=== PATIENT | female | born 1955 | race Caucasian/White ===

== ENCOUNTER → 2024-02-14 11:10 | Outpatient (REF) | payer MEDICARE, SELFPAY | LOC: HWRAD 11:10 | PROVIDERS: ATTENDING PHYSICIAN Internal Medicine | DX: M81.0 Age-related osteoporosis without current pathological fracture (principal) | CPT/HCPCS: 77080 ==

== ENCOUNTER → 2024-02-15 09:05 | Outpatient (REF) | payer MEDICARE, SELFPAY ==
[2024-02-15 09:33] LABS: % Basophils 0.5 % (0-2); % Eosinophils 1.7 % (0-6); % Immature Granulocytes 0.2 % (0-0.5); % Lymphocytes 25.9 % (20.5-51.1); % Monocytes 5.4 % (1.7-9.3); % Neutrophils 66.3 % (42.2-75.2); Absolute Eosinophils 0.1 10^3/uL (0-0.7); Absolute Lymphocytes 1.6 10^3/uL (1.2-3.4); Absolute Monocytes 0.3 10^3/uL (0.1-0.6); Hematocrit 41.1 % (37.0-47.0); Hemoglobin 13.3 g/dL (12.0-16.0); Mean Corp Hgb Conc. 32.4 g/dL (33.0-37.0); Mean Corpuscular Hgb 28.9 pg (27.0-31.0); Mean Corpuscular Volume 89.2 fL (81.0-99.0); Nucleated Red Blood Cells % 0 %; Platelet Count 268 10^3/uL (130-400); Red Blood Cell Count 4.61 10^6/uL (4.20-5.40); Red Cell Dist. Width 13.4 % (11.5-14.5); White Blood Cell Count 6.1 10^3/uL (4.8-10.8)
[2024-02-15 10:33] LABS: ALT (SGPT) 29 U/L (0-35); AST (SGOT) 25 U/L (14-36); Albumin 4.4 g/dl (3.5-5.0); Alkaline Phosphatase 80 U/L (38-126); Blood Urea Nitrogen 14 mg/dl (7-17); Carbon Dioxide 30 mmol/L (22-30); Chloride 102 mmol/L (98-107); Direct Bilirubin 0.4 mg/dl (0.0-0.4); Glucose 97 mg/dl (70-99); HDL Cholesterol 80 mg/dl; LDL Cholesterol, Calculated 78 mg/dl; Sodium 138 mmol/L (135-145); Total Bilirubin 0.5 mg/dl (0.2-1.3); Total Cholesterol 172 mg/dl (50-199); Total Protein 7.1 g/dl (6.3-8.2); Triglyceride 71 mg/dl (10-149); Very Low Density Lipoprotein 14 mg/dl (0-30); eGFR > 60.00
[2024-02-15 11:08] LABS: Potassium 4.5 mmol/L (3.5-5.1); TSH Reflex To Free T4 0.74 uIU/ml (0.47-4.68)
== END ==
LOC: REG 09:05
PROVIDERS: ATTENDING PHYSICIAN Internal Medicine
DX: E78.2 Mixed hyperlipidemia (principal); R00.2 Palpitations
CPT/HCPCS: 36415; 80053; 80061; 82248; 84443; 85025

== ENCOUNTER → 2024-04-14 06:29 | Day surgery (SDC) | payer MEDICARE, SELFPAY | LOC: GI 06:29 | PROVIDERS: ATTENDING PHYSICIAN Internal Medicine Gastroenterology; FAMILY PHYSICIAN Internal Medicine | DX: K31.7 Polyp of stomach and duodenum (principal); R12 Heartburn | CPT/HCPCS: 43239; 88305 ==

== ENCOUNTER → 2024-11-14 10:45 | Outpatient (REF) | payer MEDICARE, SELFPAY ==
[2024-11-14 11:25] LABS: % Basophils 0.3 % (0-2); % Eosinophils 1.4 % (0-6); % Immature Granulocytes 0.2 % (0-0.5); % Lymphocytes 26.3 % (20.5-51.1); % Monocytes 5.4 % (1.7-9.3); % Neutrophils 66.4 % (42.2-75.2); Absolute Eosinophils 0.1 10^3/uL (0-0.7); Absolute Lymphocytes 1.5 10^3/uL (1.2-3.4); Absolute Monocytes 0.3 10^3/uL (0.1-0.6); Absolute Neutrophils 3.8 10^3/uL (1.4-6.5); Hematocrit 42.4 % (37.0-47.0); Hemoglobin 14.1 g/dL (12.0-16.0); Mean Corp Hgb Conc. 33.3 g/dL (33.0-37.0); Mean Corpuscular Hgb 29.4 pg (27.0-31.0); Mean Corpuscular Volume 88.5 fL (81.0-99.0); Mean Platelet Volume 8.8 fL (7.4-10.4); Nucleated Red Blood Cells % 0 %; Platelet Count 247 10^3/uL (130-400); Red Blood Cell Count 4.79 10^6/uL (4.20-5.40); Red Cell Dist. Width 12.7 % (11.5-14.5); White Blood Cell Count 5.8 10^3/uL (4.8-10.8)
[2024-11-14 11:53] LABS: ALT (SGPT) 32 U/L (0-35); AST (SGOT) 25 U/L (14-36); Albumin 4.4 g/dl (3.5-5.0); Alkaline Phosphatase 90 U/L (38-126); Blood Urea Nitrogen 13 mg/dl (7-17); Calcium 9.7 mg/dl (8.4-10.2); Carbon Dioxide 31 mmol/L (22-30); Chloride 103 mmol/L (98-107); Glucose 96 mg/dl (70-99); HDL Cholesterol 80 mg/dl; LDL Cholesterol, Calculated 96 mg/dl; Potassium 4.7 mmol/L (3.5-5.1); Sodium 141 mmol/L (135-145); Total Bilirubin 0.4 mg/dl (0.2-1.3); Total Cholesterol 196 mg/dl (50-199); Total Protein 6.9 g/dl (6.3-8.2); Triglyceride 103 mg/dl (10-149); Very Low Density Lipoprotein 20 mg/dl (0-30); eGFR > 60.00
== END ==
LOC: REG 10:45
PROVIDERS: ATTENDING PHYSICIAN Internal Medicine; OTHER PHYSICIAN Internal Medicine Gastroenterology
DX: K21.9 Gastro-esophageal reflux disease without esophagitis (principal); E78.2 Mixed hyperlipidemia; R00.2 Palpitations
CPT/HCPCS: 36415; 80053; 80061; 82248; 85025

== ENCOUNTER → 2024-11-21 14:17 | Outpatient (REF) | payer MEDICARE, SELFPAY | LOC: WDC 14:17 | PROVIDERS: ATTENDING PHYSICIAN Internal Medicine | DX: Z12.31 Encounter for screening mammogram for malignant neoplasm of breast (principal) | CPT/HCPCS: 77063; 77067 ==

== ENCOUNTER → 2025-04-09 11:22 | Outpatient (REF) | payer MEDICARE, SELFPAY ==
[2025-04-09 11:58] LABS: % Basophils 0.7 % (0-2); % Eosinophils 1.4 % (0-6); % Immature Granulocytes 0.2 % (0-0.5); % Lymphocytes 30.5 % (20.5-51.1); % Monocytes 5.3 % (1.7-9.3); % Neutrophils 61.9 % (42.2-75.2); Absolute Eosinophils 0.1 10^3/uL (0-0.7); Absolute Lymphocytes 1.7 10^3/uL (1.2-3.4); Absolute Monocytes 0.3 10^3/uL (0.1-0.6); Absolute Neutrophils 3.5 10^3/uL (1.4-6.5); Hemoglobin 13.3 g/dL (12.0-16.0); Mean Corp Hgb Conc. 32.4 g/dL (33.0-37.0); Mean Corpuscular Hgb 28.9 pg (27.0-31.0); Mean Corpuscular Volume 89.1 fL (81.0-99.0); Mean Platelet Volume 9.1 fL (7.4-10.4); Nucleated Red Blood Cells % 0 %; Platelet Count 239 10^3/uL (130-400); Red Cell Dist. Width 12.7 % (11.5-14.5); White Blood Cell Count 5.6 10^3/uL (4.8-10.8)
[2025-04-09 12:29] LABS: ALT (SGPT) 30 U/L (0-35); AST (SGOT) 25 U/L (14-36); Albumin 4.4 g/dl (3.5-5.0); Alkaline Phosphatase 78 U/L (38-126); Blood Urea Nitrogen 13 mg/dl (7-17); Calcium 9.5 mg/dl (8.4-10.2); Carbon Dioxide 27 mmol/L (22-30); Chloride 109 mmol/L (98-107); Direct Bilirubin 0.2 mg/dl (0.0-0.4); Glucose 98 mg/dl (70-99); HDL Cholesterol 66 mg/dl; LDL Cholesterol, Calculated 100 mg/dl; Potassium 4.4 mmol/L (3.5-5.1); Sodium 141 mmol/L (135-145); Total Bilirubin 0.6 mg/dl (0.2-1.3); Total Cholesterol 183 mg/dl (50-199); Triglyceride 89 mg/dl (10-149); Very Low Density Lipoprotein 17 mg/dl (0-30); eGFR > 60.00
== END ==
LOC: REG 11:22
PROVIDERS: ATTENDING PHYSICIAN Internal Medicine
DX: E78.2 Mixed hyperlipidemia (principal); K21.9 Gastro-esophageal reflux disease without esophagitis
CPT/HCPCS: 36415; 80053; 80061; 82248; 85025

== ENCOUNTER 2025-07-28 05:59 | Emergency (ER) | payer MEDICARE, SELFPAY ==
[2025-07-28] VITALS (8 sets, daily range): BP systolic 92–113; BP diastolic 60–78; BMI 24.7
--- NOTE | 2025-07-28 06:36 | ED.GENMED ---
History of Present Illness
General
Chief Complaint: Abdominal Symptoms
Source: patient
Exam Limitations: none
Time Seen by Provider: 07/28/25 06:36
Nursing documentation reviewed up to this point in time: agreed with
History of Present Illness
History of Present Illness:
Note:
CHIEF COMPLAINT(S)
Headache, fever, nausea, diarrhea, dizziness.
HISTORY OF PRESENT ILLNESS
The patient is a 70-year-old female who presented with symptoms following a recent COVID-19 diagnosis, for which she started taking Paxlovid. The patient reports experiencing a severe headache and fever initially. As the evening progressed, she
developed gastrointestinal symptoms, feeling as though her stomach was impacted. She woke in the middle of the night with pronounced nausea and diarrhea, which she attributes to either the medication or COVID-19 itself. She reports dizziness and
near syncope upon getting out of bed. The patient experienced transient chest pressure, which has since resolved and attributes it potentially to anxiety. She denies significant coughing but notes a dry throat and inability to drink fluids due to
nausea. The patient is seeking relief from nausea and acknowledges a possible contribution of Paxlovid to her diarrhea, although she understands that COVID-19 itself could be a causal factor.
SOCIAL DETERMINANTS AFFECTING HEALTH
The patient expressed concern about potential medication side effects and their impact on her current health status.
MEDICATIONS
Paxlovid
Occasional use of statins (details not clearly recalled by the patient)
Fiber supplements and stool softeners
REVIEW OF SYSTEMS
- General: Reports severe headache, fever, and significant dehydration symptoms.
- Gastrointestinal: Nausea and diarrhea shortly after starting Paxlovid.
- Cardiovascular: Experienced transient chest pressure; no current chest pain.
- Neurological: Reports dizziness and almost passing out.
- Respiratory: Dry throat but denies significant cough.
PHYSICAL EXAM
General: Alert, no acute distress.
Skin: Warm, dry.
Head: Normocephalic, atraumatic.
Neck: Supple, trachea midline.
Eye Ears, Nose, Mouth, and Throat: Oral mucosa moist.
Cardiovascular: Normal peripheral perfusion, No edema.
Respiratory: Respirations are non-labored.
Gastrointestinal: Abdomen non-distended.
Back: Normal range of motion, Normal alignment.
Musculoskeletal: Normal range of motion, normal strength.
Neurological: Alert and oriented to person, place, time, and situation, No focal neurological deficit observed.
Psychiatric: Cooperative, appropriate mood & affect.
PLAN
- Initiation of intravenous fluids for rehydration.
- Administration of anti-nausea medication.
- Electrolyte panel to assess imbalances.
- Education regarding potential gastrointestinal side effects of Paxlovid and COVID-19 itself.
DIFFERENTIAL DIAGNOSIS
The Differential Diagnosis includes, in no particular order and is not limited to:
1. [id number] gastrointestinal symptoms
2. Adverse reaction to Paxlovid
3. Gastroenteritis
4. Anxiety-induced upper gastrointestinal upset
5. Dehydration impacting systemic function
6. Medication-induced side effects (statins, fiber supplements)
7. Dyspepsia
8. Viral illness unrelated to COVID-19
9. Food poisoning
10. Hypoglycemia or electrolyte imbalance affecting general condition.
Note:
EKG
My independent EKG interpretation is:
- Rhythm: Sinus rhythm
- Heart Rate: 69 bpm
- CA Interval: Normal
- QRS Duration: Normal
- QT Interval: Normal
- ST Segments: Normal
- No ischemia detected
- Overall, the EKG is normal.
Disposition:
SUMMARY OF ENCOUNTER
The patient, a 70-year-old female, presented to the emergency department with symptoms following a recent COVID-19 diagnosis and initiation of Paxlovid therapy. She experienced a severe headache, fever, gastrointestinal symptoms, nausea, diarrhea,
dizziness, and transient chest pressure. These symptoms, particularly nausea and diarrhea, started shortly after Paxlovid initiation and could be attributed to either COVID-19 or the medication itself. Intravenous fluids were administered for
rehydration, and ondansetron was given for nausea.
DISPOSITION
The patient was discharged home with instructions for follow-up care.
PLAN
- Continue monitoring symptoms.
- Follow up with primary care physician.
- Return to the emergency department if symptoms worsen or new symptoms develop.
INDEPENDENT REVIEW OF LABS AND INTERPRETATION OF TESTS
My independent EKG interpretation is: Rhythm: Sinus rhythm, Heart Rate: 69 bpm, CA Interval: Normal, QRS Duration: Normal, QT Interval: Normal, ST Segments: Normal, No ischemia detected, Overall, the EKG is normal.
PATIENT EDUCATION AND COUNSELING
The patient was educated about the possible gastrointestinal side effects of Paxlovid and COVID-19 itself. She was advised on the importance of hydration and provided with return precautions should her condition worsen.
FOLLOW-UP INSTRUCTIONS
The patient was instructed to follow up with her primary care physician.
MEDICATION RECONCILIATION
- Ondansetron was administered for nausea.
- Prescription for ondansetron (uncertain if 'amyletrol' referred to medication or incorrect).
MEDICAL DECISION MAKING
-Complexity of Data Reviewed: Chronic conditions affecting care. [id number] gastrointestinal symptoms, adverse reaction to Paxlovid, gastroenteritis, anxiety-induced upper gastrointestinal upset, dehydration impacting systemic function,
medication-induced side effects, dyspepsia, viral illness unrelated to COVID-19, food poisoning, hypoglycemia, or electrolyte imbalance affecting general condition.
-Data:
Category 1
My independent interpretation of the EKG was performed, finding no acute ischemic changes.
-Risk:
Prescription medication was prescribed and risk associated with possible gastrointestinal side effects from Paxlovid and COVID-19, leading to dehydration, was considered.
DIAGNOSIS
- COVID-19 infection (U07.1)
- Nausea (R11.0)
- Diarrhea (R19.7)
- Hypovolemia (E86.0)
- Dizziness (R42)
Past History
Past History
ED Past Medical History: GERD
Phy Exam
Physical Exam
Physical Exam:
.
Course
Orders/Labs/Results
Orders:
Orders
07/28/25 06:51
Cardiac Monitoring- Treatment ONCE
IV Insert/Care/Rem.- Treatment PRN
0.9% Sodium Chloride 1000 ml [Nss] 1,000 ml IV BOLUS
Ondansetron Injectable [Zofran] 4 mg IV NOW STA
Pulse Ox/cont/shift [RESP] Stat
Quantity: 1
07/28/25 06:52
Electrocardiogram (*1) Stat
Reason for Study: Abdominal Pain
EKG- Treatment ONCE
07/28/25 07:34
Complete Blood Count/With Diff Urgent
Comprehensive Metabolic Panel Urgent
Lipase Urgent
Troponin I Urgent
07/28/25 10:06
Vital Signs- Treatment ONCE
Frequency: Once
07/28/25 10:20
0.9% Sodium Chloride 1000 ml [Nss] 1,000 ml IV BOLUS
07/28/25 11:59
Ondansetron Injectable [Zofran] 4 mg IV NOW STA
Abnormal Lab Results
07/28/25
07:34
Absolute Lymphs (auto) 0.8 L 10^3/uL
(1.2-3.4)
Neutrophils % 78.2 H %
(42.2-75.2)
Lymphocytes % 15.1 L %
(20.5-51.1)
Glucose 111 H mg/dl
(70-99)
AST 42 H U/L
(14-36)
ALT 45 H U/L
(0-35)
07/28/25 07:34
07/28/25 07:34
Vital Signs
Initial and Last Documented VS:
Initial Vital Signs
Temp Pulse Resp BP Pulse Ox
97.8 F 80 22 92/64 97
07/28/25 06:09 07/28/25 06:09 07/28/25 06:09 07/28/25 06:09 07/28/25 06:09
Last Documented Vital Signs
Temp Pulse Resp BP Pulse Ox
98.4 F 72 16 113/78 99
07/28/25 13:19 07/28/25 13:19 07/28/25 13:19 07/28/25 13:19 07/28/25 13:19
*Pulse Oximetry
SaO2: 97
Oxygen Mode of Delivery: Room air
Patient hypoxic: no
*Critical Care Note
Total Time (30-74mins, 75-104mins- exclusive of procedures): Not Applicable
ED Attending Note
-
Portions of this chart may have been created with voice recognition software.� Occasional wrong word or��sound alike� substitutions may have occurred due to the inherent limitations of voice recognition software.
Discharge Plan
Departure
Patient Disposition: Home (Routine Discharge)
Date of Disposition: 07/28/25
Time of Disposition: 12:24
Patient with high blood pressure during this ER visit?: No
Condition: Good
Covid-19: Confirmed COVID-19
Discharge Problem:
COVID-19, Vomiting and diarrhea
Prescriptions:
New
ondansetron 4 mg tablet,disintegrating
4 mg PO Q8H PRN (Reason: nausea and vomiting) 4 Days Qty: 10 0RF
albuterol sulfate [Ventolin HFA] 90 mcg/actuation HFA aerosol inhaler
2 puff inhalation Q6H PRN (Reason: shortness of breath or wheezing) Qty: 8.5 0RF
Referrals:
Rafael Cheek MD [Family Provider]
Interventions
Interventions:
*Risk Screen - Suicide Last Done: 07/28/25 06:06
*General Assessment Last Done: 07/28/25 06:30
*Neglect/Abuse Screening Last Done: 07/28/25 06:30
*ED- Fall Risk Assessment Last Done: 07/28/25 06:30
*ED COVID-19 Vaccine History Last Done: 07/28/25 06:30
*Nursing Disposition Last Done: 07/28/25 13:19
FP-Gnzuoh-Zcasogcbxl Assessment Last Done: 07/28/25 06:31
Discharge Date and Time
Discharge Date/Time: 07/28/25 13:20
Print Language: FRISIAN
[2025-07-28] MEDS: ZOFRAN 4 MG IV ×2 (07:38→12:12)
[2025-07-28] MEDS: NSS 1000 IV ×2 (07:38→10:36)
[2025-07-28 07:53] LABS: Hematocrit 42.8 % (37.0-47.0); Hemoglobin 14.2 g/dL (12.0-16.0); Mean Corp Hgb Conc. 33.2 g/dL (33.0-37.0); Mean Corpuscular Volume 86.1 fL (81.0-99.0); Nucleated Red Blood Cells % 0 %; Platelet Count 178 10^3/uL (130-400); Red Cell Dist. Width 13.3 % (11.5-14.5)
[2025-07-28 08:07] LABS: ALT (SGPT) 45 U/L (0-35); AST (SGOT) 42 U/L (14-36); Albumin 4.5 g/dl (3.5-5.0); Alkaline Phosphatase 90 U/L (38-126); Blood Urea Nitrogen 12 mg/dl (7-17); Calcium 9.3 mg/dl (8.4-10.2); Carbon Dioxide 27 mmol/L (22-30); Chloride 102 mmol/L (98-107); Estimated Creatinine Clearance 75 ml/min; Glucose 111 mg/dl (70-99); Lipase 110 U/L (23-300); Potassium 4.1 mmol/L (3.5-5.1); Sodium 138 mmol/L (135-145); Total Protein 7.4 g/dl (6.3-8.2); eGFR > 60.00
[2025-07-28 08:13] LABS: Troponin I < 0.012 ng/ml
--- NOTE | 2025-07-28 13:15 | EDRN ---
Reviewed discharge instructions with patient. Verbalized understanding. Ambulated with steady gait to the lobby.
== END 2025-07-28 13:20 | disposition home or self-care (01) ==
LOC: EMR 05:59
PROVIDERS: EMERGENCY PHYSICIAN Emergency Medicine; FAMILY PHYSICIAN Internal Medicine
DX: U07.1 COVID-19 (principal); E86.1 Hypovolemia; R42 Dizziness and giddiness; R19.7 Diarrhea, unspecified; R11.0 Nausea
CPT/HCPCS: 96374; 96376; 96361; 99284; 80053; 83690; 84484; 85025; 93005

== ENCOUNTER → 2025-10-08 08:53 | Outpatient (REF) | payer MEDICARE, SELFPAY ==
[2025-10-08 12:15] LABS: ALT (SGPT) 39 U/L (0-35); AST (SGOT) 29 U/L (14-36); Albumin 4.7 g/dl (3.5-5.0); Alkaline Phosphatase 102 U/L (38-126); Blood Urea Nitrogen 18 mg/dl (7-17); Calcium 9.5 mg/dl (8.4-10.2); Carbon Dioxide 29 mmol/L (22-30); Chloride 103 mmol/L (98-107); Glucose 87 mg/dl (70-99); HDL Cholesterol 71 mg/dl; LDL Cholesterol, Calculated 93 mg/dl; Potassium 4.5 mmol/L (3.5-5.1); Sodium 140 mmol/L (135-145); Total Protein 7.4 g/dl (6.3-8.2); Very Low Density Lipoprotein 11 mg/dl (0-30); eGFR > 60.00
== END ==
LOC: REG 08:53
PROVIDERS: ATTENDING PHYSICIAN Internal Medicine
DX: E78.2 Mixed hyperlipidemia (principal); R00.2 Palpitations
CPT/HCPCS: 36415; 80053; 80061; 82248